=== PATIENT | male | born 1980 | race Caucasian/White ===

== ENCOUNTER 2023-11-05 08:38 | Outpatient (CLI) | payer OTHER, SELFPAY ==
--- NOTE | ~2023-11-05 | XR_ITS ---
EXAMINATION: XR knee LT min 4V DATE: 11/05/2023 08:57 INDICATION: Chronic left knee pain. TECHNIQUE: 4 views of left knee including weight-bearing views were obtained. COMPARISON: None. FINDINGS: Bone alignment is normal. No fracture. There is mild osteoarthritis of medial and patellofe moral compartments characterized by tiny osteophytes. No joint space narrowing. There is a small knee joint effusion. IMPRESSION: 1. Mild left knee osteoarthritis. 2. Small left knee joint effusion. Reviewed, dictated and finalized at location A.
== END 2023-11-05 08:39 | disposition home or self-care (01) ==
LOC: CHSIMG 08:42
PROVIDERS: PCP Family Medicine; Visit Provider Orthopaedic Surgery
DX: M25.562 Pain in left knee (principal); M17.12 Unilateral primary osteoarthritis, left knee; M25.462 Effusion, left knee
CPT/HCPCS: 73564

== ENCOUNTER 2023-11-14 09:13 | Outpatient (CLI) | payer OTHER, SELFPAY ==
--- NOTE | ~2023-11-14 | MR_ITS ---
MRI of the left knee Clinical history: Medial meniscal tear Technique: Coronal proton density and proton density-weighted images, sagittal proton-density and T2 fat-sat images, and axial proton-density fat-saturated images were acquired. Findings: Anterior and posterior cruciate ligaments are intact. Medial collateral ligament and the la teral collateral ligament complex are intact. Popliteus tendon is intact. There is horizontal tear of the posterior horn and body of medial meniscus. No lateral meniscal tear seen. Articular cartilage is well preserved throughout the knee. Bone marrow signals are unremarkable. Extensor mechanism is intact. No significant joint effusion or Osullivan's cyst. There is mild edema of t he quadriceps fat pad. Impression: Horizontal tear of the posterior horn and body of the medial meniscus. Edema of the quadriceps fat pad could indicate impingement. Reviewed, dictated and finalized at [facility]. Impression: Horizontal tear of the posterior horn and body of the medial meniscus. Edema of the quadriceps fat pad could indicate impingement.
== END 2023-11-14 09:14 ==
PROVIDERS: PCP Orthopaedic Surgery; Visit Provider Orthopaedic Surgery
DX: S83.242A Other tear of medial meniscus, current injury, left knee, initial encounter (principal); M79.4 Hypertrophy of (infrapatellar) fat pad; X58.XXXA Exposure to other specified factors, initial encounter
CPT/HCPCS: 73721

== ENCOUNTER 2024-01-24 02:18 | Day surgery (SDC) | payer OTHER, SELFPAY ==
--- NOTE | 2024-01-22 09:57 | SUR.PREOP ---
Report to the Outpatient Waiting Room, entrance under the green pavilion located off [facility], at time 0830 on date 01/24/2024. Planned Procedure Time:1030. Time changes happen often and if your time is changed the preop area will call you the afternoon before. - You and your visitor will be asked to self-screen and do not enter if you have any COVID symptoms. - A mask is optional within the hospital at this time. Patients may have clear liquids (water, carbonated beverages, clear teas, apple juice) until 3 hours prior to surgery with a maximum of 20 ounces. - No food from midnight until time of surgery - Infants may have breast milk until 4 hours before surgery, infant formula 6 hours prior to surgery. - Children will be allowed to drink immediately following surgery. If applicable, please bring a bottle or sippy cup to assist with drinking. Juice, water, soda, and popsicles are readily available. For infants on formula, please bring formula the day of surgery. Pacifiers are allowed. Take the following medications with a SIP of water the morning of surgery: N/A DO NOT STOP ANY OF YOUR OTHER PRESCRIPTION MEDICATIONS PRIOR TO SURGERY ?EXCEPT THE FOLLOWING Medications to discontinue per physician N/A Please no make-up, nail tunisian, hairspray, perfume, deodorant, or body powder the day of surgery. No jewelry (including any body piercings) or valuables the day of surgery, leave them at home. Please take a shower or bath the night before, or the morning of, surgery with an antibacterial soap. Wear comfortable, loose fitting clothing. Children are encouraged to wear pajamas. - Jewelry must be removed prior to entering the operating room. Rings and piercings that are not removed may be cut off. - The hospital will not accept responsibility for valuables. - Please leave all valuables, including medications, at home the day of surgery. If you are going home after surgery, a licensed skidder driver must drive you home. - NO public transportation without another adult if you receive anesthesia. - We recommend that an adult stay with you for 24 hours following discharge. - We also recommend that you do not drive, make important decision, drink alcoholic beverages, or take any drugs that were not prescribed by your health care provider for at least 24 hours after your discharge time. For Pediatric surgeries, we recommend two adults accompany the child home. Follow any additional instructions given to you from your surgeon. If you or anyone in your household have experienced Covid symptoms in the past week, please notify your surgeon or the nurse liaison at the phone number below for possible testing. Telephone instructions given to ____patient and asked if any additional questions and then verbalized understanding. Patient advised to call surgeon office or pre surgery nurse liaison [phone] if any additional questions.
[2024-01-24] VITALS (7 sets, daily range): BP systolic 117–143; BP diastolic 73–94; PULSE 58–80; RESP 13–17; TEMP 36.2–36.5; O2SAT 97–100; BMI 30.6
--- NOTE | 2024-01-24 07:22 | WPDHPUPDATE1 ---
History and Physical Update Update Date/Time: 01/24/24 07:22 History and Physical has been reviewed, including an updated exam of the patient. There are NO changes in the patient's condition. Risks, benefits, and alternatives have been discussed and questions answered. Patient agrees to proceed with procedure.
[2024-01-24] MEDS: LACTATED RINGERS 1,000 ML 30 ML IV CONT ×2 (09:05→12:08)
[2024-01-24] MEDS: ACETAMINOPHEN 500 MG TABLET 1000 MG PO (09:13)
[2024-01-24] MEDS: KETOROLAC 15 MG/ML VIAL (*BKC) IV PUSH (09:13)
--- NOTE | 2024-01-24 09:58 | P.PNAN_ITS ---
Anes - Initial Pre Proc Eval Procedure: Operation Date: 01/24/24 10:30 Proposed Procedures p Left Knee Arthroscopy, Debride Meniscus, Synovectomy, Chondroplasty, Proceed As Indicated - Bert Quiroz MD Date/Time: 01/24/24 09:58 Surgeon: Bert Quiroz MD Pre Op Diagnosis: left knee pain, medial meniscus tear, Patient Data Age: 43 Gender: M Height: 1.8 m Weight: 97.7 kg Allergies Allergy/AdvReac Type Severity Reaction Status Date / Time Penicillins Allergy Unknown Rash Verified 01/22/24 09:34 Home Medications Medication Instructions Recorded Confirmed Type hydrocodone 7.5 mg-acetaminophen 1 tablet PO Q6H PRN pain #30 tabs 01/24/24 Rx 325 mg tablet ibuprofen 800 mg tablet 800 mg PO TID PRN pain #30 tabs 01/24/24 Rx ondansetron 8 mg disintegrating 8 mg PO Q8H PRN nausea and 01/24/24 Rx tablet vomiting #10 tabs polyethylene glycol 3350 17 gram 17 g PO DAILY PRN constipation #14 01/24/24 Rx oral powder packet ea sennosides 8.6 mg-docusate sodium 1 tab-cap PO BID PRN constipation 01/24/24 Rx 50 mg tablet (Senna with Docusate #20 tabs Sodium) Patient hx anesthesia problems: none Family hx anesthesia problems: none Results Review: All pre-operative results and documents have been reviewed as part of the pre- operative evaluation. 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 Informed Consent: The patient's anesthetic plan and its attendant risks and benefits were discussed with the patient/family/POA. Questions were solicited and answers provided to the satisfaction of the patient/family/POA.
[2024-01-24] MEDS: ceFAZolin 2 GM/D5W 50 ML 2 GM/50 ML BAG IVPB (10:51)
[2024-01-24] MEDS: BUPivacaine HCL 0.25% PF 10 ML VIAL INFILTRATE (11:23)
[2024-01-24] MEDS: BUPIVACAINE/EPINEPHRINE 0.5% 50 ML VIAL 10 ML INFILTRATE (11:24)
--- NOTE | 2024-01-24 12:13 | W.PM.PROC2 ---
Procedure Note - Detailed Date of Procedure 01/24/24 Pre-op Diagnosis left knee pain, medial meniscus tear, synovitis hypertrophic medial plica Post-op Diagnosis Same Procedure Performed Left knee arthroscopy, partial medial meniscectomy, synovectomy. Surgeon Bert Quiroz MD Anesthesia General Indications 43-year-old with left knee pain after injury. MRI demonstrates medial meniscus tear and synovitis. failed non operative treatment with cortisone injection, physical therapy, bracing. Presents for operative treatment. Findings Bucket-handle tear medial meniscus with extrusion into the intercondylar notch. The torn portion of meniscus degenerative nonviable. Grade 1 chondromalacia medial femoral condyle. Grade 2 chondromalacia patellofemoral articulation. Lateral compartment and meniscus intact. ACL and PCL intact. Significant hypertrophic synovium and anterior fat pad, enlarged and hypertrophic medial plica. Description of Procedure Informed consent given by patient. Operative extremity marked in preoperative holding area. Patient received intravenous antibiotics. Patient brought to operating room and underwent general anesthetic by anesthesia team. Positioned supine on operating room table. Left leg placed into a posterior thigh leg patterson. Foot of the table dropped to 90? and right leg padded out of the field. Time-out performed confirming patient, site of surgery and plan. Left knee prepped and draped in usual sterile surgical fashion using ChloraPrep skin solution. Standard arthroscopic portals made by using a 11 blade knife for the anterior lateral portal 1st. Capsule penetrated bluntly. Camera and inflow started. The above operative findings noted. Intra-articular visualization used to position the anterior medial portal using 22 gauge spinal needle. A 11 blade knife used for the skin and blunt penetration of the capsule. probe introduced and the extruded portion medial meniscus was reduced. This was noted to be in the white white zone and was not felt to be repairable or that it had reasonable viability for healing. Decision was made for partial medial meniscectomy. 4.7 millimeter arthroscopic shaver introduced and partial medial meniscectomy of the loose and torn portion performed. Edge of meniscus completed with arthroscopic Wand. Arthroscopic Wand used to perform chondroplasty of the patellofemoral articulation and the medial femoral condyle. Shaver reintroduced and a synovectomy performed of the anterior fat pad and extensive synovium as well as medial and lateral plica. Bleeding points coagulated with Wand. Knee inspected, no loose pieces noted. 1 liter of irrigant infused and suction out. Arthroscopic cannulas removed. Skin closed with 4 nylon interrupted suture. Local anesthetic with 0.25% Marcaine. Sterile dressing applied. Patient awoken from anesthesia, extubated and taken to recovery room in stable condition. All sponge needle and instrument counts correct at the end of the case. Implants none Estimated Blood Loss 5 Tourniquet Time Total Tourniquet Time: 0 Drains No Packing No Pathology None sent Complications None Condition Stable Disposition PACU [facility] Billing Surgery - Charge Forward: Surgery Billing ([id number], [id number])
--- NOTE | 2024-01-24 12:14 | SUR.PHASEI ---
crutch training mistakenly documented. not done by this nurse
== END 2024-01-24 13:33 | disposition home or self-care (01) ==
PROVIDERS: PCP Family Medicine; Visit Provider Orthopaedic Surgery
PROC: (CPT 29870; principal; 2024-01-24 10:30)
DX: S83.212A Bucket-handle tear of medial meniscus, current injury, left knee, initial encounter (principal); M65.862 Other synovitis and tenosynovitis, left lower leg; M22.42 Chondromalacia patellae, left knee; M67.52 Plica syndrome, left knee; X50.0XXA Overexertion from strenuous movement or load, initial encounter; F17.220 Nicotine dependence, chewing tobacco, uncomplicated; E66.9 Obesity, unspecified; Z68.30 Body mass index [BMI] 30.0-30.9, adult
CPT/HCPCS: 29876; 29881; A9270; J0690; J1100; J1885; J2250; J2405; J2704; J3010; J7120

== ENCOUNTER 2024-11-25 10:21 | Outpatient (CLI) | payer OTHER, SELFPAY ==
--- NOTE | ~2024-11-25 | XR_ITS ---
Right foot Technique: AP, oblique, and lateral views were obtained. Clinical History: Injury Findings: No acute fracture or dislocation is seen. Osseous alignment is anatomic. Joint spaces are p reserved without erosive or degenerative change. Soft tissues are unremarkable. Impression: Unremarkable right foot radiographs. Reviewed, dictated and finalized at location . Impression: Unremarkable right foot radiographs.
--- OUTSIDE RECORDS SUMMARY | 2024-11-25 11:26 | XMS_ITS | Referral Summary ---
Author Organization [facility] Address [address] [place] [address] Care Team Providers Care Bad Cloth Checker Name Role Phone Latoya Hernandez MD Primary Care Provider Allergies Active Allergy Reactions Criticality Noted Date Comments Penicillins Hives Reaction: Hives, , Medications No known medications Active Problems Problem Noted Date Diagnosed Date Personal history of colonic polyps 04/05/2023 Encounter for screening colonoscopy 04/05/2023 Paronychia of toe 02/26/2023 Polyp of gallbladder 04/14/2019 Overview (04/14/2019): Added automatically from request for surgery [id number] Gallbladder polyp 03/31/2019 Assessment & Plan (06/03/2019 11:46 AM SLIDING JOINT MAKER): Recent cholecystectomy due to findings of large polyp in gallbladder. Pt says he is doing well after surgery and LUQ pain has improved. Assessment & Plan (04/14/2019 11:04 AM CDT): 9.4mm polyp, symptoms of pain after eating, full work up from GI with EGD and colonoscopy and labs, patient was given less success rate of resolution of symptoms, however this is a reasonable next step, this was discussed with the patient and he agrees to surgical intervention of cholecystectomy. Assessment & Plan (03/31/2019 2:12 PM CDT): Abdominal US noted 2 polyps, larger of the 2 was measured to be 9.4mm. Recent CT showed the gallbladder polyp at 8mm. Unsure if this pain is related to gallbladder polyps. Will refer to surgery to get their opinion on possible cholecystectomy. Abdominal pain 03/31/2019 Overview (03/31/2019): Added automatically from request for surgery [id number] Tinnitus of both ears 03/24/2019 Assessment & Plan (03/24/2019 4:38 PM CDT): Hearing test - call with results Cancel out ringing with loud fan, radio, white noise devices Melatonin 3 mg at bedtime Work on stopping smokeless tobacco Hearing loss 03/24/2019 Assessment & Plan (03/24/2019 4:38 PM CDT): Hearing test - call with results Cancel out ringing with loud fan, radio, white noise devices Melatonin 3 mg at bedtime Work on stopping smokeless tobacco Muscle weakness 03/18/2019 Assessment & Plan (03/18/2019 12:49 PM CDT): Pt is unsure if this is related to protonix given at last appointment. Will switch him to omeprazole 40mg daily to see if symptoms improve. Encouraged him to follow up with his PCP regarding this issue as well. Will get CBC and CMP due to worsening weakness. Pt told to go to ED if symptoms worsen. He verbalized understanding. Fatigue 03/18/2019 LUQ pain 03/06/2019 Assessment & Plan (06/03/2019 11:47 AM SLIDING JOINT MAKER): Pt says LUQ pain still occurring but has greatly improved since cholecystectomy. He said the pain doesn't occur as often, is much milder, and doesn't last as long when it does occur. We did upper/lower scopes and CT of abd with contrast that was unremarkable except for findings of large gallbladder polyp which was thought to be reason for pain. Pt said the pain if bearable and not very bothersome. Will f/u in about 6 months to ensure pain is stable and/or resolved and not worsened at that point. Assessment & Plan (03/31/2019 2:13 PM CDT): Recent EGD was negative. Pt still having this pain shortly after meals. He had normal EGD and CT showed gallbladder polyp, otherwise negative. Will complete GI workup with colonoscopy. He will be referred to surgery for their opinion on gallbladder polyps and symptoms. Assessment & Plan (03/18/2019 12:51 PM CDT): Has improved since last appointment but still occurring almost daily. Will switch to omeprazole 40mg daily. Pt originally had EGD scheduled 04/23 but due to worsening symptoms, EGD was rescheduled to tomorrow. Assessment & Plan (03/06/2019 2:25 PM CDT): Pt seeing mild improvement with pantoprazole 20mg and probiotics. Will increase pantoprazole to 40mg daily, continue probiotics, and schedule EGD with Dr. Gunn to rule out PUD or other causes. Mass of chest wall 11/05/2017 Mass of right forearm 11/05/2017 Tobacco dependence syndrome 11/01/2013 Overview (09/20/2016): TOBACCO USE DISORDER Adiposity 11/01/2013 Overview (09/20/2016): OBESITY NOS Elevated blood-pressure read ing without diagnosis of hypertension 11/01/2013 Overview (09/20/2016): ELEV BL PRES W/O HYPERTN Gross hematuria 03/15/2012 History of vasectomy 03/11/2012 Immunizations Immunization Administration Dates Next Due Tdap 05/09/2010 Social History Tobacco Use Types Packs/Day Years Used Date Smoking Tobacco: Never Smokeless Tobacco: Current Chew Alcohol Use Standard Drinks/Week Comments Yes 1 (1 standard drink = 0.6 oz pur e alcohol) occasionally AUDIT-C Answer Date Recorded Q1: How often do you have a drink containing alcohol? Never 04/05/2023 Q2: How many drinks containi ng alcohol do you have on a typical day when you are drinking? Patient does not drink Q3: How often do you have si x or more drinks on one occasion? Never 04/05/2023 Personal Safety Answer Date Recorded Have you ever been in or are you currently in a harmful physical or emotional relationship or is someone making you feel afraid or unsafe? 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 Not on file Not on file Not on file Last Filed Vital Signs Vital Sign Reading Time Taken Comments Blood Pressure 139/85 08/24/2023 11:31 AM SLIDING JOINT MAKER Pulse 66 08/24/2023 11:31 AM SLIDING JOINT MAKER Temperature 36.8 C (98.3 F) 08/24/2023 11:31 AM SLIDING JOINT MAKER Respiratory Rate 18 08/24/2023 11:31 AM SLIDING JOINT MAKER Oxygen Saturation 100% 08/24/2023 11:31 AM SLIDING JOINT MAKER Inhaled Oxygen Concentration - - Weight 95.3 kg (210 lb) 08/24/2023 8:59 AM SLIDING JOINT MAKER Height 180.3 cm (5' 11) 08/24/2023 8:59 AM SLIDING JOINT MAKER Body Mass Index 29.29 08/24/2023 8:59 AM SLIDING JOINT MAKER Plan of Treatment Not on file Procedures Procedure Name Priority Date/Time Associated Diagnosis Comments COLONOSCOPY 08/24/2023 9:08 AM SLIDING JOINT MAKER from Last 3 Months or Most Recently Relevant to Health Maintenance Results * Colonoscopy (08/24/2023 9:08 AM SLIDING JOINT MAKER) Anatomical Region Laterality Modality Other Narrative Procedure Note Clotilde Gunn MD - 08/24/2023 9:08 AM CST [facility] Patient Name: Sameer Balderas Procedure Date: 08/24/2023 9:08 AM Date of : 1980 Admit Type: Outpatient Age: 43 Gender: Male Attending MD: Clotilde Gunn M.D. Room: [facility] ENDOSCOPY ROOM 1 Note Status: Finalized Patient Profile: This is a 43 year old male. History of polyps. No family history of colon cancer. Procedure: Colonoscopy Indications: High risk colon cancer surveillance: Personalhistory of colonic polyps Referring MD: Latoya Hernandez M.D. Providers: Clotilde Gunn M.D. Impression: - Two 8 to 9 mm polyps in the transverse colon andin the ascending colon, removed with a cold snare. Resected and retrieved. Recommendation: - Await pathology results. - Repeat colonoscopy in 4 years for surveillance. - Continue present medications. Medicines: Monitored Anesthesia Care Complications: No immediate complications. Estimated Blood Loss: Estimated blood loss: none. Procedure: Pre-Anesthesia Assessment: - Prior to the procedure, a History and Physicalwas performed, and patient medications and allergieswere reviewed. The patient's tolerance of previous anesthesia was also reviewed. The risks andbenefits of the procedure and the sedation options and risks were discussed with the patient. All questions were answered, and informed consent was obtained. Prior Anticoagulants: The patient has taken noanticoagulant or antiplatelet agents. ASA Grade Assessment: Per anesthesia note and evaluation. After reviewing the risks and benefits, the patient was deemed in satisfactory condition to undergo the procedure. The benefits, risks and alternatives of theprocedure and sedation were discussed and informed consentwas obtained. All questions were answered. Please referto the signed informed consent document in the medical record. The bowel preparation used was Miralax via split dose instruction. The bowel preparation usedwas bisacodyl tablets via split dose instruction. The scope was passed under direct vision. The Pediatric Colonoscope PCF-H190L [id number] was introducedthrough the anus and advanced to the the cecum, identifiedby appendiceal orifice and ileocecal valve. Thequality of the bowel preparation was good. Bowel prep was administered using a split dose. Findings: The perianal and digital rectal examinations were normal. The cecum appeared normal. Two sessile polyps were found in the transverse colon and ascending colon. The polyps were 8 to 9 mm in size. These polyps were removedwith a cold snare. Resection and retrieval were complete. The rectum, sigmoid colon and descending colon appeared normal. Retroflexion of the rectum showed small internal hemorrhoids Electronically signed by Clotilde Gunn M.D. Clotilde Gunn M.D. 08/24/2023 11:08:53 AM Number of Addenda: 0 Note Initiated On: 08/24/2023 9:08 AM Procedure Code(s): --- Professional --- 12759, Colonoscopy, flexible; with removal of tumor(s), polyp(s), or other lesion(s) by snare technique Diagnosis Code(s): --- Professional --- Z86.010, Personal history of colonic polyps D12.3, Benign neoplasm of transverse colon (hepatic flexure orsplenic flexure) D12.2, Benign neoplasm of ascending colon CPT copyright 2020 [employer]. All rights reserved. The codes documented in this report are preliminary and upon client solutions specialist reviewmay be revised to meet current compliance requirements. Recognized by the [employer] for promoting quality in endoscopy Clotilde uGnn MD ENDOSCOPY PROCEDURES Final Result from Last 3 Months or Most Recently Relevant to Health Maintenance Insurance [employer] [facility] Advance Directives For more information, please contact: [phone] * Full Code (Latest Code Status on File) Date Activated Date Inactivated Comments 08/24/2023 8:55 AM 08/24/2023 3:42 PM * Full Code Date Activated Date Inactivated Comments 08/24/2023 8:55 AM 08/24/2023 8:55 AM * Full Code Date Activated Date Inactivated Comments 04/09/2019 9:39 AM 04/09/2019 4:20 PM * Full Code Date Activated Date Inactivated Comments 04/09/2019 9:39 AM 04/09/2019 9:39 AM * Full Code Date Activated Date Inactivated Comments 03/19/2019 7:41 AM 03/19/2019 1:46 PM Care Teams Bad Cloth Checker Relationship Specialty Start Date End Date Latoya Hernandez MD [address] [place], [place] [id number] PCP - General Family Medicine 02/26/23
--- OUTSIDE RECORDS SUMMARY | 2024-11-25 11:27 | XMS_ITS | Clinical Summary ---
Author Organization [facility] Address [address] [place] [address] Phone Care Team Providers Care Mattress Specialist Name Role Phone Ha Sakina MOON Primary Care Provider [phone] Allergies Active Allergy Reactions Criticality Noted Date Comments Penicillins Hives 11/05/2017 Medications No known medications Active Problems Problem Noted Date Diagnosed Date Mass of chest wall 11/05/2017 Mass of right forearm 11/05/2017 Social History Tobacco Use Types Packs/Day Years Used Date Smoking Tobacco: Never Smokeless Tobacco: Current Sex and Gender Information Value Date Recorded Sex Assigned at Not on file Legal Sex Male 5:28 AM PET HANDLER Gender Identity Not on file Sexual Orientation Not on file Last Filed Vital Signs Vital Sign Reading Time Taken Comments Blood Pressure 136/99 11/05/2017 10:04 AM CDT lf t arm Pulse 58 11/05/2017 10:04 AM CDT Temperature - - Respiratory Rate - - Oxygen Saturation - - Inhaled Oxygen Concentration - - Weight 90.7 kg (200 lb) 11/05/2017 10:04 AM CDT Height 177.8 cm (5' 10) 11/05/2017 10:04 AM CDT Body Mass Index 28.7 11/05/2017 10:04 AM CDT Plan of Treatment Health Maintenance Due Date Last Done Comments DTAP/TDAP/TD VACCINES (1 - Tdap) 1997 HEPATITIS B VACCINES (1 of 3 - 19+ 3-dose series) 1997 COLORECTAL SCREENING 2023 Colorectal Cancer Screening 2023 FIT-DNA Q 3 years 2023 FIT/FOBT Q 1 year 2023 Flex Sig/CT Colonography Q 5 years 2023 INFLUENZA VACCINE (#1) 2024 HPV VACCINES Aged Out No longer eligi ble based on patient's age to complete this topic Insurance [employer] CHOICE POS II Care Teams Mattress Specialist Relationship Specialty Start Date End Date Sakina Bonner PA PCP - General Physician Winery Worker 11/05/17
--- OUTSIDE RECORDS SUMMARY | 2024-11-25 11:27 | XMS_ITS | Clinical Summary ---
Author Organization [facility] Address [address] [place] [address] Care Team Providers Care Psychiatric Rn Name Role Phone Latoya Hernandez MD Primary Care Provider Allergies Active Allergy Reactions Criticality Noted Date Comments Penicillins Hives Reaction: Hives, , Medications No known medications Active Problems Problem Noted Date Diagnosed Date Personal history of colonic polyps 04/05/2023 Encounter for screening colonoscopy 04/05/2023 Paronychia of toe 02/26/2023 Polyp of gallbladder 04/14/2019 Overview (04/14/2019): Added automatically from request for surgery [id number] Gallbladder polyp 03/31/2019 Assessment & Plan (06/03/2019 11:46 AM INSTRUMENTATION SPECIALIST): Recent cholecystectomy due to findings of large [...] (03/31/2019): Added automatically from request for surgery [id number] Tinnitus of both ears 03/24/2019 Assessment & [...] 03/06/2019 Assessment & Plan (06/03/2019 11:47 AM INSTRUMENTATION SPECIALIST): Pt says LUQ pain still occurring but [...] Immunization Administration Dates Next Due Tdap 05/09/2010 Surgical History Surgery Date Site/Laterality Comments OTHER SURGICAL HISTORY right 3rd finger partial amp: surgical reattachment COLONOSCOPY 04/09/2019 EXCISION 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 GANGLION CYST EXCISION Left wrist COLONOSCOPY 08/24/2023 Medical History Medical History Date Comments Hx Other Medical 1999 right 3rd finge r partial amp; Outcome: free of disease GERD (gastroesophageal reflux disease) Family History Medical History Relation Name Comments Hypertension Father Hypertension; / Hypertension; Other Mother Healthy; Relation Name Status Comments Father Alive Mother Alive Social History Tobacco Use Types Packs/Day Years [...] on file Legal Sex Male 8:45 AM INSTRUMENTATION SPECIALIST Gender Identity Not on file Sexual Orientation Not on file Occupation Industry Job Start Date Job End 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[employer] Not on file Not on file Not on file Obstetrics History Last Filed Vital Signs Vital Sign Reading Time Taken Comments Blood Pressure 139/85 08/24/2023 11:31 AM INSTRUMENTATION SPECIALIST Pulse 66 08/24/2023 11:31 AM INSTRUMENTATION SPECIALIST Temperature 36.8 C (98.3 F) 08/24/2023 11:31 AM INSTRUMENTATION SPECIALIST Respiratory Rate 18 08/24/2023 11:31 AM INSTRUMENTATION SPECIALIST Oxygen Saturation 100% 08/24/2023 11:31 AM INSTRUMENTATION SPECIALIST Inhaled Oxygen Concentration - - Weight 95.3 kg (210 lb) 08/24/2023 8:59 AM INSTRUMENTATION SPECIALIST Height 180.3 cm (5' 11) 08/24/2023 8:59 AM INSTRUMENTATION SPECIALIST Body Mass Index 29.29 08/24/2023 8:59 AM INSTRUMENTATION SPECIALIST Plan of Treatment Health Maintenance Due Date Last Done Comments Depression Screening 1980 Hepatitis C Screening 1980 Hepatitis B Screening 1996 Regular Well Visit/Exam 18-64 1996 DTaP/Tdap/Td Vaccine (2 - Td or Tdap) 05/09/2020 05/09/2010 Influenza Vaccine (Season Ended) 2025 Colon Cancer Screening-Colonoscopy 08/23/2033 08/24/2023, 04/09/2019 HPV Vaccines Aged Out No longer eligi ble based on patient's age to complete this topic Pneumococcal vaccine <65 Aged Out No longer eligible based on patient's age to complete this topic Procedures Procedure Name Priority Date/Time Associated Diagnosis Comments COLONOSCOPY 08/24/2023 9:08 AM INSTRUMENTATION SPECIALIST from Last 3 Months or Most Recently Relevant to Health Maintenance Results * Colonoscopy (08/24/2023 9:08 AM INSTRUMENTATION SPECIALIST) Anatomical Region Laterality Modality Other Narrative Procedure Note Clotilde Gunn MD - 08/24/2023 9:[address] [facility] Patient Name: Sameer Balderas Procedure Date: 08/24/2023 9:08 AM Date of : 1980 Admit Type: Outpatient Age: 43 Gender: Male Attending MD: Clotilde Gunn M.D. Room: [facility] ENDOSCOPY ROOM 1 Note Status: Finalized Patient [...] under direct vision. The Pediatric Colonoscope PCF-H190L [id number] was introducedthrough the anus and advanced to [...] 9:08 AM Procedure Code(s): --- Professional --- 32185, Colonoscopy, flexible; with removal of tumor(s), polyp(s), or other lesion(s) by snare technique Diagnosis Code(s): --- Professional --- Z86.010, Personal history of colonic polyps D12.3, Benign neoplasm of transverse colon (hepatic flexure orsplenic flexure) D12.2, Benign neoplasm of ascending colon CPT copyright 2020 [employer] [place] [employer]. All rights reserved. The codes documented in this report are preliminary and upon icd 9 coder reviewmay be revised to meet current compliance requirements. Recognized by the [employer] [place] [employer] for promoting quality in endoscopy Clotilde Gunn MD ENDOSCOPY PROCEDURES Final Result from Last 3 Months or Most Recently Relevant to Health Maintenance Insurance Degreed O [facility] Degreed O [employer] [facility] HMO Advance Directives For more information, please contact: [phone] * Full Code (Latest Code Status on [...] 7:41 AM 03/19/2019 1:46 PM Care Teams Psychiatric Rn Relationship Specialty Start Date End Date Latoya Hernandez MD [address] [place] [id number] PCP - General Family Medicine 02/26/23
== END 2024-11-25 10:22 | disposition home or self-care (01) ==
LOC: CHSIMG 10:24
PROVIDERS: PCP Family Medicine; Visit Provider Family Medicine
DX: S99.922A Unspecified injury of left foot, initial encounter (principal)
CPT/HCPCS: 73630

== ENCOUNTER 2025-04-13 13:41 | Outpatient (CLI) | payer OTHER, SELFPAY ==
--- NOTE | ~2025-04-13 | XR_ITS ---
EXAMINATION: XR knee LT min 4V, 04/13/2025 13:45 CDT HISTORY: M25.562 - Pain in left knee COMPARISON: No comparisons available. Findings: No acute fracture or malalignment. No significant degenerative changes. Soft tissues unremarkable. Impression: No acute fracture or malalignment. Reviewed, dictated and finalized at location P. Impression: No acute fracture or malalignment.
== END 2025-04-13 13:42 | disposition home or self-care (01) ==
LOC: ANHBWCIMG 13:43
PROVIDERS: PCP Family Medicine; Visit Provider Orthopaedic Surgery
DX: M25.562 Pain in left knee (principal)
CPT/HCPCS: 73564